=== PATIENT | female | born 1980 | race Hispanic/Latino ===

== ENCOUNTER 2017-04-11 10:41 | Emergency (ER) | payer OTHER ==
[2017-04-11 10:50] VITALS: BP 115/64
[2017-04-11 11:37] LABS: Bacteria,Urine 3+ /HPF (Negative); Bilirubin,Urine NEG (Negative); Blood,Urine NEG (Negative); Ketones,Urine NEG (Negative); Leukocyte Esterase,Urine NEG (Negative); Mucus,Urine FEW /HPF; Nitrite,Urine NEG (Negative); Protein,Urine <15 mg/dL mg/dL (Negative); Urobilinogen,Urine < 2.0 mg/dL (<2.0)
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
[2017-04-11] MEDS ORDERED: NORCO 5/325 PO ONE (12:40)
[2017-04-11] MEDS ORDERED: FLEXERIL PO ONE (12:40)
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
== END 2017-04-11 14:53 | disposition home or self-care (01) ==
LOC: ED 10:41
DX: S16.1XXA Strain of muscle, fascia and tendon at neck level, initial encounter (principal); R82.71 Bacteriuria; G44.319 Acute post-traumatic headache, not intractable; R10.9 Unspecified abdominal pain; Z88.1 Allergy status to other antibiotic agents; Z90.710 Acquired absence of both cervix and uterus; V49.49XA Driver injured in collision with other motor vehicles in traffic accident, initial encounter; Y93.89 Activity, other specified; Y92.89 Other specified places as the place of occurrence of the external cause; Y99.8 Other external cause status
CPT/HCPCS: 70450; 72125; 81001; 87086

== ENCOUNTER 2018-06-03 11:07 | Outpatient (CLI) | payer BC ==
--- NOTE | 2018-06-03 23:45 | Treadmill Report ---
TREADMILL STRESS TEST ORDERING PHYSICIAN: Elle Morales MD INDICATION: Atypical chest pain. After obtaining written consent, the patient underwent a stress test per Ronny protocol. Baseline heart rate was 77 beats per minute and the baseline blood pressure was 115/55. The patient exercised on the Ronny protocol for 10 minutes, achieving a heart rate of 177 beats per minute, which corresponds to 100% of the maximal age-predicted heart rate. Maximal blood pressure was 138/68. There were no ischemic EKG changes were recorded. No limiting chest pain or shortness of breath reported. There were some occasional PVCs recorded during recovery. IMPRESSION: 1. This is a normal treadmill stress test with a low risk for cardiovascular event. 2. 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 JOB# [id number] EVA/MALLY
== END 2018-06-03 11:08 | disposition home or self-care (01) ==
LOC: CARD 11:07
PROVIDERS: ATTEND Internal Medicine Cardiovascular Disease
DX: I07.1 Rheumatic tricuspid insufficiency (principal)
CPT/HCPCS: 93017; 93306